=== PATIENT | female | born 1990 | race African-American/Black ===

== ENCOUNTER 2018-06-09 13:22 | Emergency (ER) | payer BC ==
[~2018-06-09] VITALS: Ht 172.7 cm; Wt 114.1 kg
[2018-06-09 13:24] VITALS: Ht 172.7 cm; Wt 114.1 kg
[2018-06-09] MEDS ORDERED: TOPAMAX50 MG PO (13:25)
[2018-06-09] MEDS ORDERED: VITAMIN D31000 UNI2 PO (13:26)
[2018-06-09] MEDS ORDERED: NEURONTIN800 MG PO (13:26)
[2018-06-09 14:07] LABS: BASOPHILS 0.4 % (0-2); EOSINOPHILS 0.7 % (0-7); HEMATOCRIT 41.5 % (36.0-48.0); HEMOGLOBIN 13.5 g/dL (12-16); IMMATURE GRANULOCYTES 0.2 % (0-5); LYMPHOCYTES 39.1 % (15-50); MCHC 32.5 g/dL (31.0-37.0); MCV 95.2 fL (80.0-100.0); MEAN PLATELET VOLUME 11.6 fL (7.4-10.4); MONOCYTES 6.9 % (2-11); NEUTROPHILS 52.7 % (40-80); PLATELET COUNT 221 10x3/uL (130-400); RBC 4.36 10x6/uL (4.00-5.40); RDW 13.1 % (11.5-14.5); WBC 5.5 10x3/uL (4.8-10.8)
[2018-06-09 14:20] LABS: ALBUMIN 3.3 g/dL (3.4-5.0); ALKALINE PHOSPHATASE 79 U/L (46-116); ALT (SGPT) 23 U/L (10-68); BILIRUBIN - TOTAL 0.26 mg/dL (0.2-1.3); CALC OSMOLALITY 279 mosm/kg (275-300); CALCIUM 8.2 mg/dL (8.5-10.1); CARBON DIOXIDE 23.6 mmol/L (21.0-32.0); CHLORIDE - SERUM 107 mmol/L (98-107); CREATINE KINASE 64 UL (21-215); CREATININE - SERUM 0.8 mg/dL (0.6-1.3); GLUCOSE 79 mg/dL (74-106); MAGNESIUM - SERUM 1.9 mg/dL (1.8-2.4); PROTEIN - SERUM 7.1 g/dL (6.4-8.2); SODIUM 141 mmol/L (136-145); UREA NITROGEN 12 mg/dL (7-18); eGFR NON AFRICAN AMERICAN 90 mL/min (90-120)
[2018-06-09 14:58] VITALS: BP 118/55
== END 2018-06-09 14:58 | disposition home or self-care (01) ==
LOC: D.ER 13:22
PROVIDERS: Family Medicine
DX: F41.9 Anxiety disorder, unspecified (principal); R56.9 Unspecified convulsions

== ENCOUNTER → 2018-06-16 11:20 | Outpatient (CLI) | payer MEDICAID ==
[2018-06-09 13:24] VITALS: BMI 38.2
[~2018-06-16 11:20] MED LIST: NEURONTIN800 MG PO; TOPAMAX50 MG PO; VITAMIN D31000 UNI2 PO
== END | disposition home or self-care (01) ==
LOC: D.NM 11:20
DX: R11.0 Nausea (principal); R10.9 Unspecified abdominal pain

== ENCOUNTER → 2018-07-08 09:35 | Outpatient (CLI) | payer MEDICAID ==
[2018-06-09 13:24] VITALS: BMI 38.2
== END | disposition home or self-care (01) ==
LOC: D.MRI 09:35
DX: R93.89 Abnormal findings on diagnostic imaging of other specified body structures (principal); K76.9 Liver disease, unspecified; R10.9 Unspecified abdominal pain; R11.2 Nausea with vomiting, unspecified